=== PATIENT | male | born 2000 | race Caucasian/White ===

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

== ENCOUNTER → 2021-04-02 15:42 | Outpatient (CLI) | payer BC, SELFPAY ==
--- NOTE | 2021-04-03 09:05 | PC.NURSE ---
informed patient that he is positive
== END ==
PROVIDERS: PCP Family Medicine; Visit Provider Nurse Practitioner
DX: U07.1 COVID-19 (principal)
CPT/HCPCS: C9803; U0003; U0005